=== PATIENT | female | born 1950 | race Asian ===

== ENCOUNTER 2021-09-12 23:01 | Emergency (ER) | payer MEDICARE ==
[~2021-09-12] VITALS: Ht 154.9 cm; Wt 59.0 kg
[2021-09-12 23:02] VITALS: BP 149/94
--- NOTE | 2021-09-12 23:10 | NUR ---
EKG IN TRIAGE
--- NOTE | 2021-09-12 23:17 | NUR ---
PT TAKEN TO BED 9
--- NOTE | 2021-09-12 23:45 | NUR ---
71 Y.O BIB W/C TO TRIAGE FROM WORK (PT IS EMPLOYEE HERE) WITH C/O PALPITATIONS X 2 HOURS "EVERY TIME I MOVE, I CAN FEEL MY HEART BEAT" APPEARS ANXIOUS. SYMPTOMS STARTED AT ABOUT 2100. DENIES CHEST PAIN AND N/V/D. PT STATED SHE GOT SOB WALKING TO THE BATHROOM BUT FEELS FINE NOW. NO DIZZINESS OR FEVER. A&OX4, SKIN INTACT, STEADY GAIT, AND VITALS WNL.
--- NOTE | 2021-09-12 23:48 | NUR ---
Dr. Garcia examining patient.
[2021-09-12] MEDS ORDERED: LORazepam 0.5 MG TAB PO ONE (23:55)
[2021-09-13 00:07] LABS: BASOPHILS # (AUTO) 0.1 K/uL (0.00-0.22); BASOPHILS % (AUTO) 0.5 % (0.0-2.0); EOSINOPHILS % (AUTO) 0.2 % (0.0-4.0); HEMATOCRIT 41.1 % (36-48); HEMOGLOBIN 13.5 g/dL (12.0-16.0); LYMPHOCYTES # (AUTO) 1.5 K/uL (2.5-16.5); LYMPHOCYTES % (AUTO) 16.5 % (20.5-51.1); MEAN CORPUSCULAR HEMOGLOBIN 27 pg (27-31); MEAN CORPUSCULAR HGB CONC 33 g/dL (33-37); MEAN CORPUSCULAR VOLUME 83.2 fL (80-94); MONOCYTES # (AUTO) 0.5 K/uL (0.8-1.0); MONOCYTES % (AUTO) 5.6 % (1.7-9.3); NEUTROPHILS # (AUTO) 7.1 K/uL (1.8-7.7); NEUTROPHILS % (AUTO) 77.2 % (42.2-75.2); PLATELET COUNT (AUTO) 211 K/uL (140-450); RED BLOOD CELL COUNT(AUTO) 4.93 MIL/uL (4.20-5.40); RED CELL DISTRIBUTION WIDTH 13.6 % (11.6-13.7); WHITE BLOOD COUNT (AUTO) 9.3 K/uL (4.8-10.8)
[2021-09-13 00:29] LABS: ALBUMIN 3.5 g/dL (3.4-5.0); ANION GAP 12.7 (8-16); ASPARTATE AMINOTRANSFERASE 18 U/L (15-37); CARBON DIOXIDE 24.8 mmol/L (21-32); CHLORIDE 108 mmol/L (98-107); CREATININE 0.9 mg/dL (0.6-1.3); GLUCOSE 107 mg/dL (74-106); POTASSIUM 3.5 mmol/L (3.5-5.1); SODIUM SERUM 142 mmol/L (136-145); TOTAL BILIRUBIN 0.1 mg/dL (0.0-1.0); UREA NITROGEN, BLOOD 31 mg/dL (7-18)
[2021-09-13 01:26] LABS: MAGNESIUM 1.9 mg/dL (1.8-2.4); PHOSPHORUS 3.1 mg/dL (2.5-4.9)
[2021-09-13] MEDS ORDERED: ATI.5 PO (01:47)
[2021-09-13 02:09] VITALS: BP 125/73
== END 2021-09-13 01:51 | disposition home or self-care (01) ==
LOC: MED 23:01
DX: R00.2 Palpitations (principal); I10 Essential (primary) hypertension; Z79.899 Other long term (current) drug therapy; Z88.5 Allergy status to narcotic agent; Z98.890 Other specified postprocedural states
CPT/HCPCS: 36415; 71045; 80053; 83036; 83735; 84100; 84484; 85025; 93005; 99285; Q0092; 83690